=== PATIENT | male | born 1935 | race Two or more races ===

== ENCOUNTER 2020-05-29 14:36 | Inpatient (IN) | payer MEDICAID ==
[~2020-05-29] VITALS: Ht 165.1 cm; Wt 64.0 kg
[2020-05-29] MEDS ORDERED: CEFTRIAXONE 1GM BAG (ER ONLY) 50 ML IV ONE (15:28)
[2020-05-29] MEDS ORDERED: AZITHROMYCIN 500 MG VIAL ONE (15:28)
[2020-05-29] MEDS ORDERED: DEXAMETHASONE SOD PHOSPHATE 10 MG/ML VIAL ONE (15:28)
[2020-05-29] MEDS ORDERED: CEFTRIAXONE 1 G in IV D5W 50 ML IV ONE (15:30)
[2020-05-29] MEDS ORDERED: AZITHROMYCIN 500 MG in IV D5W 250 ML IV ONE (15:30)
[2020-05-29] MEDS ORDERED: DEXAMETHASONE SOD PHOSPHATE 10 MG/ML VIAL IV ONE (15:30)
[2020-05-29 15:43] LABS: BASOPHILS % (AUTO) 0.1 % (0.0-2.0); EOSINOPHILS % (AUTO) 0.1 % (0.0-6.0); HEMATOCRIT 49 % (39-51); HEMOGLOBIN 16.1 g/dL (13.5-17.5); LYMPHOCYTES # (AUTO) 0.3 /CMM (0.8-4.8); LYMPHOCYTES % (AUTO) 3.8 % (20.0-44.0); MEAN CORPUSCULAR HGB CONC 33 g/dl (31.0-36.0); MEAN CORPUSCULAR VOLUME 94 fL (80-96); MONOCYTES # (AUTO) 0.6 /CMM (0.1-1.30); MONOCYTES % (AUTO) 6.3 % (2.0-12.0); NEUTROPHILS # (AUTO) 7.9 /CMM (1.8-8.9); NEUTROPHILS % (AUTO) 89.7 % (43.0-81.0); PLATELET COUNT (AUTO) 149 /CMM (150-450); RED BLOOD CELL COUNT(AUTO) 5.18 MIL/uL (4.5-6.0); WHITE BLOOD COUNT (AUTO) 8.8 K/uL (4.3-11.0)
[2020-05-29 16:05] LABS: BILIRUBIN,URINE SMALL (NEGATIVE); COLOR,URINE YELLOW (YELLOW); LEUKOCYTE ESTERASE ,URINE NEGATIVE (NEGATIVE); NITRITE, URINE NEGATIVE (NEGATIVE); PH,URINE 5.5 (5.0-8.0); PROTEIN,URINE TRACE mg/dl (NEGATIVE); UGLUCOSE NEGATIVE (NEGATIVE)
[2020-05-29 16:06] LABS: ALANINE AMINOTRANSFERASE 20 U/L (12-78); ALBUMIN 2.3 g/dL (3.4-5.0); ALKALINE PHOSPHATASE 117 U/L (46-116); ASPARTATE AMINOTRANSFERASE 33 U/L (15-37); BILIRUBIN,DIRECT 0.2 mg/dL (0.0-0.2); BILIRUBIN,TOTAL 0.8 mg/dL (0.2-1.0); CALCIUM, SERUM 9.3 mg/dL (8.5-10.1); CARBON DIOXIDE 21 mmol/L (21-32); CHLORIDE 108 mmol/L (98-107); CREATININE 1.1 mg/dL (0.6-1.3); GLUCOSE 110 mg/dL (74-106); POTASSIUM 3.8 mmol/L (3.5-5.1); SODIUM SERUM 144 mmol/L (136-145); TOTAL PROTEIN, SERUM 7.3 g/dL (6.4-8.2); UREA NITROGEN, BLOOD 34 mg/dL (7-18)
[2020-05-29 16:25] LABS: D-DIMER 35.2 mg/L(FEU (0.17-0.50)
[2020-05-29 16:27] LABS: BACTERIA,URINE Few /HPF (None Seen); SQUAMOUS EPITHELIAL CELL,UR Rare /HPF (None Seen)
[2020-05-29 16:28] LABS: RBC,URINE 0-2 /HPF (0-2); WBC,URINE NONE SEEN /HPF (0-3)
[2020-05-29] MEDS ORDERED: NS 0.9% IV ONE (16:30)
[2020-05-29] MEDS ORDERED: IOHEXOL-350 100 ML VIAL IV ONE (16:43)
[2020-05-29] MEDS ORDERED: IV NS 0.9% 250 ML IV ONE (16:43)
[2020-05-29 16:45] LABS: CREATINE KINASE, TOTAL 28 U/L (39-308)
[2020-05-29 17:21] LABS: ABG BASE EXCESS -4.2 mmol/L; ABG OXYGEN SATURATION 94.9 % (92.0-98.5); ABG PCO2 25.5 mmHg (35.0-45.0); ABG PH 7.459 (7.350-7.450); ABG PO2 72.6 mmHg (75.0-100.0); AaDO2 154.5 mmHg; COHb 0.4 % (0.5-1.5); MetHb 0.4 % (0.0-1.5); O2Hb 94.1 % (94.0-97.0); SITE, ABG Left Radial; VENT MODE, BG NASAL CANNULA
[2020-05-29 17:59] LABS: FERRITIN 1411 ng/mL (8-388)
[2020-05-29] MEDS ORDERED: ENOXAPARIN SODIUM 60 MG/0.6 ML DISP.SYRIN SQ ONE ×2 (18:30→18:33)
[2020-05-29 23:28] LABS: C-REACTIVE PROTEIN 26.5 mg/dL (0.0-0.9)
[2020-05-30] MEDS ORDERED: ZOLPIDEM TARTRATE 5 MG TABLET PO PRN (00:30)
[2020-05-30] MEDS ORDERED: ACETAMINOPHEN 325 MG TABLET PO PRN (00:30)
[2020-05-30 04:00] VITALS: BP 150/81
[2020-05-30 08:00] VITALS: BP 144/77
[2020-05-30] MEDS ORDERED: DEXAMETHASONE SOD PHOSPHATE 10 MG/ML VIAL IV SCH (09:00)
[2020-05-30] MEDS ORDERED: SERT50TA PO (09:32)
[2020-05-30] MEDS ORDERED: REMDESIVIR (CHARGED) 200 MG, *LOADING DOSE 1 EA in IV NS 0.9% 210 ML IV ONE (10:00)
[2020-05-30] MEDS: ENOXAPARIN SODIUM 60 MG/0.6 ML DISP.SYRIN SQ SCH ×2 (10:13→21:51)
[2020-05-30] MEDS: DEXAMETHASONE SOD PHOSPHATE 10 MG/ML VIAL IV SCH ×2 (10:13→18:42)
[2020-05-30 12:00] VITALS: BP 147/78
[2020-05-30 16:00] VITALS: BP 144/73
[2020-05-30 20:00] VITALS: BP 138/75
[2020-05-31] MEDS ORDERED: REMDESIVIR (CHARGED) 100 MG in IV NS 0.9% 100 ML IV SCH (10:00)
[2020-05-31] MEDS ORDERED: REMDESIVIR (CHARGED) 100 MG in IV NS 0.9% 230 ML IV SCH (10:00)
== END 2020-05-30 23:43 | disposition short-term general hospital (02) | DRG 137 ==
LOC: EDSEX 14:40 → ER 14:40 → TELE2 23:19
PROVIDERS: ADMIT Internal Medicine; ATTEND Internal Medicine
PROC: XW033E5 Introduction of Remdesivir Anti-infective into Peripheral Vein, Percutaneous Approach, New Technology Group 5 (ICD-10-PCS; principal; 2020-05-30)
DX: U07.1 COVID-19 (principal); J12.82 Pneumonia due to coronavirus disease 2019; I25.10 Atherosclerotic heart disease of native coronary artery without angina pectoris; I10 Essential (primary) hypertension; F41.9 Anxiety disorder, unspecified; J96.01 Acute respiratory failure with hypoxia; I82.721 Chronic embolism and thrombosis of deep veins of right upper extremity; I82.711 Chronic embolism and thrombosis of superficial veins of right upper extremity; Z66 Do not resuscitate; F03.90 Unspecified dementia, unspecified severity, without behavioral disturbance, psychotic disturbance, mood disturbance, and anxiety; F32.9 Major depressive disorder, single episode, unspecified; Z79.899 Other long term (current) drug therapy
CPT/HCPCS: 36415; 36600; 71045-TC; 80048-TC; 80061-TC; 80076-TC; 81001; 82550-TC; 82728-TC; 83605-TC; 83615-TC; 84484-TC; 85025-TC; 85378-TC; 85730-TC; 86140-TC; 87040-TC; 87081-TC; 87086-TC; A4216; C9803; G0378; J0456; J0696; J1100; J1650; J7030; J7050; J7060; Q9967; U0003